=== PATIENT | female | born 1960 | race Caucasian/White ===

== ENCOUNTER 2024-12-07 13:58 | Emergency (ER) | payer OTHER, SELFPAY ==
[2024-12-07] VITALS (14 sets, daily range): BP systolic 121–157; BP diastolic 56–90; PULSE 72–96; RESP 8–25; O2SAT 93–98
--- NOTE | 2024-12-07 14:00 | DI.CT_ITS ---
Exam(s) CT HEAD CERVICAL SPINE WO EXAM: CT HEAD CERVICAL SPINE WO CLINICAL HISTORY: fall, neck pain with loss of sensation R. arm/leg. TECHNIQUE: Imaging Protocol: Axial computed tomography images with coronal and sagittal reformatted images were created and reviewed COMPARISON: No exams were available for comparison FINDINGS: Head CT Ventricles and Extra axial spaces: Normal in size and morphology for the patient's age. Hemorrhage: None. Cerebral parenchyma: No evidence of mass or acute infarct. Midline shift: None. Brainstem/Cerebellum: Normal. Calvarium: Normal. Visualized Paranasal sinuses/Mastoids: Clear. Soft tissues: Unremarkable. Cervical Spine CT BONES: Anterior fusion at C5-[address] Vertebral body heights are maintained. Straightening of the normal cervical lordosis, combination of postsurgical and degenerative. There is no evidence of acute fracture. Degenerative disc changes and facet degenerative changes are seen, greatest at C4-5 where there is severe disc space narrowing and endplate osteophyte formation. There is multilevel neural foraminal narrowing which is severe at C3-4 and C4-5 and moderate to severe at C6-7. SOFT TISSUES: No paraspinal hematoma. The airway appears intact. No pneumothorax is seen at the lung apices. IMPRESSION: Head CT: No acute abnormality. C-spine CT: Advanced degenerative and postsurgical changes, no acute abnormality. RADIATION DOSE DELIVERED: Total DLP DATA REPOSITORY: All CT scans at this facility are submitted to the National Radiology Data Registry (NRDR) Dose Index Registry (DIR) with the [employer] ([employer]). RADIATION OPTIMIZATION: All CT scans at this facility use at least one of these dose optimization techniques: automated exposure control; mA and/or kV adjustment per patient size (includes targeted exams where dose is matched to clinical indication); or iterative reconstruction.
--- NOTE | 2024-12-07 14:00 | DI.CT_ITS ---
Exam(s) CT THORACIC LUMBAR SPINE WO CT CHEST/ABD/PEL W EXAM: CT CHEST/ABD/PEL W CLINICAL HISTORY: trauma. TECHNIQUE: Imaging Protocol: Axial computed tomography images with coronal and sagittal reformatted images were created and reviewed. Computer aided detection (CAD) was utilized. CONTRAST MATERIAL: Intravenous: Omnipaque 350 Contrast volume:100 ml Oral: / no COMPARISON: CT CT THORACIC LUMBAR SPINE WO from 12/07/2024 FINDINGS: CHEST: Pulmonary parenchyma: No consolidation. No dominant measurable mass. Tracheobronchial tree: No bronchiectasis. No mucous plugging.No bronchial wall thickening. Pleura: No effusion or pneumothorax. Mediastinum: Within normal limits. Pulmonary arteries: No visible emboli. Cardiovascular: Heart size is normal. No pericardial effusion. Thoracic aorta non-dilated. Bones/thoracic spine: Unremarkable for age. No lytic or blastic lesions. No compression fractures. Soft tissues: Unremarkable. ABDOMEN and PELVIS: Liver: Normal density. No suspicious mass. Gallbladder and biliary tract: No evidence of stones or wall thickening. No biliary dilatation. Pancreas: Normal density, no abnormal calcifications or inflammatory process. Spleen: Normal. Kidneys: Normal size, contour and axis. No radiodense stones. No obstructive uropathy. No suspicious masses seen. Adrenal glands: No masses seen. Aorta: Abdominal portion non-dilated. Lymph nodes: Within normal limits. Soft tissues: Unremarkable. Bladder: Over distended but unremarkable. Bowel: No obstruction or bowel wall thickening. Diverticulosis. No evidence of diverticulitis. The appendix appears normal. Peritoneal cavity: No ascites. No focal collection. No mesenteric inflammatory response. No free air. Bones/lumbar spine: No evidence of spine or pelvic fracture. There is severe narrowing of the L5-S1 disc space. There are facet degenerative changes at L4-5 causing mild spondylolisthesis. Reproductive organs: Unremarkable for age. IMPRESSION: No acute abnormality in the chest, abdomen or pelvis. The preliminary [facility] report was reviewed. RADIATION DOSE DELIVERED: Total DLP DATA REPOSITORY: All CT scans at this facility are submitted to the National Radiology Data Registry (NRDR) Dose Index Registry (DIR) with the [employer] (ACR). RADIATION OPTIMIZATION: All CT scans at this facility use at least one of these dose optimization techniques: automated exposure control; mA and/or kV adjustment per patient size (includes targeted exams where dose is matched to clinical indication); or iterative reconstruction.
--- NOTE | 2024-12-07 14:15 | W.ED.GENAD ---
Discharge Plan Disposition Patient Disposition: Transfer-Acute Inpatient Care Specific Acute Inpt Facility: [facility] Condition: Stable Discharge Details Clinical Impression: Central cord syndrome Primary Care Provider: Unknown,Unknown ED Provider: Lauren Daniels Home Meds and New Rx's Prescriptions: No Action aspirin 81 mg tablet 81 mg PO DAILY duloxetine 30 mg capsule,delayed release(DR/EC) 30 mg PO DAILY HPI General Mode of arrival: ambulatory. Date/Time Provider Initiated Documentation: 12/07/24 13:58. Limitations to Documentation: no limitations. Information obtained by: patient, EMS and old records reviewed. HPI Narrative: This is a 64-year-old female patient with a past medical history significant for UT, cervical fusion, presenting for evaluation after a fall. The patient was hiking, tripped over a root and had something in her hand that prevented her from catching herself. She reports that she struck her face on the ground, does not believe she lost consciousness but states she immediately had significant neck pain as well as numbness of her right arm and leg. She reports that her numbness gradually subsided over the course of 5 minutes and she was able to ambulate out holding a stick for support. She reports that she is having neck pain and ongoing electric/burning like pain intermittently primarily in her right hand and wrist. She does not take blood thinning medication, did not receive any medications for pain prior to arrival. She resides in [place], is here with a friend. The patient reports that she is not experiencing back, chest, abdomen or pelvic pain. Related Data Home Medications ?Medication ?Instructions ?Recorded ?Confirmed aspirin 81 mg tablet 81 mg PO DAILY 12/07/24 12/07/24 duloxetine 30 mg capsule,delayed 30 mg PO DAILY 12/07/24 12/07/24 release Allergies Allergy/AdvReac Type Severity Reaction Status Date / Time Sulfa (Sulfonamide Allergy Severe Skin Rash Verified 12/07/24 14:03 Antibiotics) General Stated Complaint: Fall/Non TraumaCriteria MARCELO: 2 Exam Narrative Exam Narrative: Gen: awake and alert, in no apparent distress. Appears well nourished. HEENT: PERRL, EOMs full and without nystagmus. External ears and nose normal, mucous membranes moist. Scalp atraumatic, abrasion over the right forehead and lateral sikhism. Teeth and tongue uninjured. Neck: Tender to palpation at the midline, and a cervical collar. Lungs: No increased work of breathing, lung sounds clear and equal bilaterally without wheezes, rhonchi, or rales. CV: Heart with regular rate and rhythm. Strong and symmetrical radial pulses. Chest wall is stable without crepitus, deformity, or tenderness Abdomen: Soft, nondistended, non-tender to palpation. No rigidity, rebound tenderness, or guarding. MSK: No joint swelling, no redness. Full ROM without limitation, no external traumatic findings. No T or L-spine tenderness or step-offs, pelvis stable to AP compression. Skin: No rashes or lesions to visualized skin. Normal color, warm, and dry. Neuro: Cranial nerves II-XII intact and symmetrical bilaterally. 5/5 strength in all muscle groups x4 extremities. Reported ongoing tingling of the right hand, the patient does have reproduction of electric like pain with gentle touch over the right hand and wrist. Psych: Appropriate for situation. Course Vital Signs Vital signs: Vital Signs Pulse 82 12/07/24 14:01 Respiratory Rate 25 H 12/07/24 14:01 Blood Pressure 148/87 H 12/07/24 14:01 Pulse Oximetry 93 12/07/24 14:01 Pulse 82 12/07/24 14:01 Respiratory Rate 25 H 12/07/24 14:01 Blood Pressure 148/87 H 12/07/24 14:01 Blood Pressure Position Sitting 12/07/24 14:01 Pulse Oximetry 93 12/07/24 14:01 Oxygen Delivery Method Room Air 12/07/24 14:01 Oxygen Flow Rate 0 12/07/24 14:01 Medical Decision Making This is a 64-year-old female patient presenting for evaluation after a trip and fall with head strike and neck pain. My differential includes but is not limited to fracture, specifically I am concerned about the cervical spine with potential injury to the spinal cord, including spinal cord compression, central cord syndrome, spinal cord contusion. Considered intracranial abnormalities including hemorrhage, skull fracture. I considered back fracture and spinal cord injury at those levels, the patient's exam is less concerning for intrathoracic or intra-abdominal pathology. She was in her normal state of health prior to this event and this was a trip and fall incident with no preceding syncope, chest pain, dizziness to suggest medical etiology of her fall. Given the concerning neurologic deficits, we will proceed with a CT trauma evaluation to include head, C/T/L-spine, chest abdomen and pelvis. I will obtain trauma labs to include CBC, CMP, magnesium, INR. At this time, the patient declines any medications for management of pain. - I independently interpreted the laboratory studies, which show no significant leukocytosis, anemia, or thrombocytopenia. The chemistry panel is without evidence of electrolyte abnormality, kidney dysfunction, or liver injury. INR 1.0, and CT scan reviewed by myself, showed no acute traumatic findings, that the patient does have central canal stenosis at the C4 and C5 level, prior surgical hardware appears in place. The patient continues to have paresthesias most notably in her right hand and I am concerned for central cord syndrome. I discussed this case with Dr. Hollis of the trauma team at [facility] who is graciously accepted this patient for transfer. She will be kept in full spine precautions, left our facility in the care of [facility], was hemodynamically stable throughout her time under my care. Lauren Daniels MD [facility] All Active Problems (Updated 12/07/24 @ 17:37 by Lauren Daniels MD) Central cord syndrome (Acute) Social History Smoking risk assessment performed?: No
[2024-12-07 14:31] LABS: Abs Immature Grans 0.04 10^3/uL (0.0-0.06); HCT 39.3 % (36.0-46.0); HGB 12.9 g/dL (11.2-15.7); Immature Grans % 0.5 %; MCH 29.2 pg (27.0-33.0); MCHC 32.8 % (32.0-36.0); MCV 89 fL (80-95); MPV 11.4 fL (8.0-11.0); Platelet Count 145 10^3/uL (130-400); RBC 4.42 10^6/uL (3.93-5.22); RDW 12.4 % (11.7-14.6); RDW-SD 40.7 fL; WBC 7.73 10^3/uL (4.4-10.8)
[2024-12-07] MEDS: Omnipaque 350 MG/ML 100 ML BTL IJ (14:44)
[2024-12-07 14:53] LABS: INR 1.0 (0.9-1.1); Prothrombin Time 9.7 sec (9.1-11.1)
[2024-12-07 14:56] LABS: ALT 19 U/L (14-59); AST 19 U/L (15-37); Albumin 3.6 g/dL (3.4-5.0); Alkaline Phosphatase 136 U/L (46-116); Anion Gap 8.0 mmol/L (3-11); BUN 13 mg/dL (7-18); Bilirubin, Total 0.3 mg/dL (0.2-1.0); CO2 27.0 mmol/L (21.0-32.0); Calcium 8.5 mg/dL (8.5-10.1); Chloride 104 mmol/L (98-107); Estimated GFR 83.26 (mL/min/1.73m2); Glucose 93 mg/dL (74-106); Magnesium 1.9 mg/dL (1.8-2.4); Potassium 4.0 mmol/L (3.5-5.1); Sodium 139 mmol/L (136-145); Total Protein 6.8 g/dL (6.4-8.2)
--- NOTE | 2024-12-07 15:31 | DI.[facility]AD_ITS ---
PROCEDURE INFORMATION: Exam: CT Head Without Contrast Exam date and time: 12/07/2024 2:29 PM Age: 64 years old Clinical indication: Other: Fall, neck pain with loss of sensation R. Arm/leg TECHNIQUE: Imaging protocol: Computed tomography of the head without contrast. Radiation optimization: All CT scans at this facility use at least one of these dose optimization techniques: automated exposure control; mA and/or kV adjustment per patient size (includes targeted exams where dose is matched to clinical indication); or iterative reconstruction. COMPARISON: No relevant prior studies available. FINDINGS: Brain: Ventricles, sulci are within normal limits. There is no evidence of acute hemorrhage, mass or shift. There is no evidence of an acute cortical or major vascular territory infarct. No abnormal extra-axial collections are identified. Cerebral ventricles: No significant ventricular enlargement/hydrocephalus. Paranasal sinuses: No significant sinus opacification or fluid level Mastoid air cells: No significant mastoid opacification Bones: There is no acute bony abnormality Soft tissues: Subcutaneous soft tissues are unremarkable IMPRESSION: No acute findings. PROCEDURE INFORMATION: Exam: CT Cervical Spine Without Contrast Exam date and time: 12/07/2024 2:29 PM Age: 64 years old Clinical indication: Other: Fall, neck pain with loss of sensation R. Arm/leg TECHNIQUE: Imaging protocol: Computed tomography of the cervical spine without contrast. Radiation optimization: All CT scans at this facility use at least one of these dose optimization techniques: automated exposure control; mA and/or kV adjustment per patient size (includes targeted exams where dose is matched to clinical indication); or iterative reconstruction. COMPARISON: No relevant prior studies available. FINDINGS: Bones: There is straightening of the cervical lordosis which may be positional or due to spasm. There is mild anterolisthesis of T1 with respect to T2. The patient has had prior ACDF at C5-C6. There is no evidence of an acute fracture in the cervical spine. There is no decrease of vertebral body height. There is no acute or destructive bony abnormality. There is multilevel disc space narrowing. There are disc osteophyte complexes, spondylitic changes of the endplates, uncovertebral and facet arthropathy. There is narrowing of the canal at the level of the disc spaces most prominent at C4-C5. Degenerative changes lead to multilevel foraminal stenosis most prominent at C4-C5, and left greater than right at C3-C4. Mild neuroforaminal narrowing is noted elsewhere. Lungs: Pleural-parenchymal scarring is noted at the lung apices Soft tissues: There is no evidence of a discrete soft tissue mass in the neck. There are small bilateral cervical nodes which are nonenlarged by size criteria IMPRESSION: Prior ACDF. No acute fracture. Cervical spondylosis, degenerative disc disease. Dictated and Authenticated by: Barb Larson MD. Orderin [facility] Aguilar MD
--- NOTE | 2024-12-07 15:35 | DI.VRAD_ITS ---
PROCEDURE INFORMATION: Exam: CT Chest With Contrast; Diagnostic Exam date and time: 12/07/2024 2:40 PM Age: 64 years old Clinical indication: Other: Trauma; Additional info: Trauma, fall TECHNIQUE: Imaging protocol: Diagnostic computed tomography of the chest with contrast. Radiation optimization: All CT scans at this facility use at least one of these dose optimization techniques: automated exposure control; mA and/or kV adjustment per patient size (includes targeted exams where dose is matched to clinical indication); or iterative reconstruction. Contrast material: OMNIOAQUE 350; Contrast volume: 100 ml; Contrast route: INTRAVENOUS (IV); COMPARISON: CT HEAD CERVICAL SPINE WO 12/07/2024 2:29 PM FINDINGS: Lungs: Lungs are well aerated without a focal area of consolidation. Lungs are well aerated without a focal area of consolidation. Right and left mainstem bronchi are normal. Trachea unremarkable. No appreciable bronchial wall thickening. Pleural spaces: Unremarkable. No pneumothorax. No pleural effusion. Heart: Unremarkable. No cardiomegaly. No pericardial effusion. Lymph nodes: See Soft tissues finding. Vasculature: Aorta and pulmonary arteries grossly normal. Bones/joints: Osseous structures are unremarkable. No fracture. Mild degenerative changes within the visualized portions of the spine. Prior operative changes lower cervical spine. No sternal fracture. No clavicular fracture. Careful attention in regards to evaluation of the ribs given the history of trauma. A rib fracture is not visualized. Soft tissues: Soft tissue windows demonstrate a normal-appearing mediastinum other than small subcentimeter lymph nodes which are nonspecific. Soft tissues about the thorax unremarkable Other findings: Hilum unremarkable. Visualized portions of the abdomen normal. IMPRESSION: 1. Lungs are well aerated without a focal area of consolidation. No pneumothorax. Mild apical fibrosis. 2. Careful attention in regards to evaluation of the ribs given the history of trauma. A rib fracture is not visualized. 3. Atraumatic chest . PROCEDURE INFORMATION: Exam: CT Abdomen And Pelvis With Contrast Exam date and time: 12/07/2024 2:40 PM Age: 64 years old Clinical indication: Other: Trauma; Additional info: Trauma, fall TECHNIQUE: Imaging protocol: Computed tomography of the abdomen and pelvis with contrast. Radiation optimization: All CT scans at this facility use at least one of these dose optimization techniques: automated exposure control; mA and/or kV adjustment per patient size (includes targeted exams where dose is matched to clinical indication); or iterative reconstruction. Contrast material: OMNIOAQUE 350; Contrast volume: 100 ml; Contrast route: INTRAVENOUS (IV); COMPARISON: CT THORACIC LUMBAR SPINE WO 12/07/2024 2:40 PM FINDINGS: Liver: Mild fatty infiltration of the liver. Gallbladder and biliary ducts: Normal. No calcified stones. No ductal dilation. Pancreas: Normal. No ductal dilation. Spleen: Normal. No splenomegaly. Adrenal glands: Normal. No mass. Kidneys and ureters: Normal. No hydronephrosis. Stomach and bowel: Diverticulosis without evidence of diverticulitis. Incomplete rotation of large bowel with the cecum in the mid/lower abdomen.The terminal ileum and cecum appear grossly normal. Appendix: The appendix is not visualized. Intraperitoneal space: no acute intra-abdominal process. No free fluid in the pelvis. No osseous injury. No evidence of visceral injury. Vasculature: Flow within the superior mesenteric artery, celiac trunk and inferior mesenteric arteries. Lymph nodes: Unremarkable. No enlarged lymph nodes. Urinary bladder: Unremarkable as visualized. Reproductive: Unremarkable as visualized. Bones/joints: Severe degenerative disc disease L5-S1 Soft tissues: Soft tissues are unremarkable. IMPRESSION: 1. No acute intra-abdominal process. No free fluid in the pelvis. No osseous injury. No evidence of visceral injury. 2. Diverticulosis without evidence of diverticulitis. Dictated and Authenticated by: Román Quintana MD. Orderin [facility] Aguilar MD
--- NOTE | 2024-12-07 15:40 | DI.VRAD_ITS ---
PROCEDURE INFORMATION: Exam: CT Thoracic Spine Without Contrast Exam date and time: 12/07/2024 2:40 PM Age: 64 years old Clinical indication: Other: Trauma; Additional info: Trauma, fall TECHNIQUE: Imaging protocol: Computed tomography of the thoracic spine without contrast. Radiation optimization: All CT scans at this facility use at least one of these dose optimization techniques: automated exposure control; mA and/or kV adjustment per patient size (includes targeted exams where dose is matched to clinical indication); or iterative reconstruction. COMPARISON: CT HEAD CERVICAL SPINE WO 12/07/2024 2:29 PM FINDINGS: Bones/joints: Normal alignment. No appreciable rib fracture in the visualized portions of the ribs. Mild degenerative changes within the thoracic spine. No fracture. Prior operative changes caudal aspects of the cervical spine Soft tissues: No paravertebral edema Lungs: Visualized portions of the lung bases appear normal. IMPRESSION: Mild degenerative changes within the thoracic spine. No fracture. PROCEDURE INFORMATION: Exam: CT Lumbar Spine Without Contrast Exam date and time: 12/07/2024 2:40 PM Age: 64 years old Clinical indication: Other: Trauma; Additional info: Trauma, fall TECHNIQUE: Imaging protocol: Computed tomography of the lumbar spine without contrast. Radiation optimization: All CT scans at this facility use at least one of these dose optimization techniques: automated exposure control; mA and/or kV adjustment per patient size (includes targeted exams where dose is matched to clinical indication); or iterative reconstruction. COMPARISON: CT CHEST/ABD/PEL W 12/07/2024 2:40 PM FINDINGS: Bones/joints: Mild degenerative disc disease reflected as a decrease in disc space height and anterior endplate osteophytosis with the exception of moderate disc space narrowing L5-S1. No spondylolisthesis. No pars defect. No fracture. Mild degenerative listhesis of L4 with respect to L5 of approximately 5 mm . Severe facet arthropathy L4-L5. Moderate central canal narrowing suggested L4-L5. Soft tissues: Unremarkable. IMPRESSION: 1. Mild degenerative disc disease reflected as a decrease in disc space height and anterior endplate osteophytosis with the exception of moderate disc space narrowing L5-S1. 2. No fracture. 3. Mild degenerative listhesis of L4 with respect to L5 of approximately 5 mm . Severe facet arthropathy L4-L5. 4. Moderate central canal narrowing suggested L4-L5. Dictated and Authenticated by: Román Quintana MD. Orderin [facility] Aguilar MD
== END 2024-12-07 18:14 | disposition short-term general hospital (02) ==
PROVIDERS: Emergency Provider Emergency Medicine
DX: S14.129A Central cord syndrome at unspecified level of cervical spinal cord, initial encounter (principal); W19.XXXA Unspecified fall, initial encounter
CPT/HCPCS: 99285 ×2; 74177; 80053; 70450; 71260; 72125; 72128; 72131; 83735; 85025; 85610; J3490